=== PATIENT | female | born 1935 | race Caucasian/White ===

== ENCOUNTER 2019-07-18 14:20 | Inpatient (IN) ==
[2019-07-18] MEDS ORDERED: 0.9 % Sodium Chloride 1,000 ML ONE (15:37)
[2019-07-18] MEDS ORDERED: Ondansetron ODT 4 MG TAB.RAPDIS ONE (17:08)
[2019-07-18] MEDS ORDERED: Aspirin 81 MG TAB.CHEW ONE (17:09)
[2019-07-18] MEDS ORDERED: Ondansetron 4 MG/2 ML VIAL IVP PRN (18:14)
[2019-07-18] MEDS ORDERED: Naloxone 0.4 MG/ML INJ IVP PRN (18:14)
[2019-07-18] MEDS ORDERED: Ipratropium/Albuterol Neb 3 ML IH PRN (18:44)
[2019-07-18] MEDS: Apixaban 2.5 MG TABLET PO SCH (20:21)
[2019-07-19 01:00] LABS: Calcium 9.7 mg/dL (8.6-10.3); Magnesium 2.4 mg/dL (1.6-2.6); Potassium 3.7 mEq/L (3.5-5.1)
[2019-07-19 01:01] LABS: Troponin I 0.08 ng/mL (< 0.04)
[2019-07-19 01:25] LABS: Activated Partial Thrombo Time 37.8 Seconds (26.0-36.0); INR 1.9; Prothrombin Time 21.2 Seconds (9.4-12.1)
[2019-07-19 05:55] LABS: Bilirubin,Urine Negative (Negative); Blood,Urine Small (Negative); Clarity,Urine Clear (Clear); Color,Urine Yellow (Yellow); Glucose,Urine (UA) Normal (Normal); Ketones,Urine Negative (Negative); Leukocyte Esterase,Urine Negative (Negative); Nitrite,Urine Negative (Negative); Protein,Urine 30 mg/dL (Neg-Trace); Specific Gravity,Urine 1.016 (1.010-1.025); Urobilinogen,Urine Normal (Normal)
[2019-07-19 05:58] LABS: Basophils % 0.3 %; Immature Granulocytes % 0.3 % (0-4); Mean Corpuscular Hemoglobin 28.9 pg (28.0-33.3); Mean Corpuscular Volume 98.8 fL (83.0-100.0)
[2019-07-19 06:00] LABS: Hematocrit 32.8 % (35.3-44.9); Hemoglobin 9.6 g/dL (11.5-15.4); Immature Platelets 8.9 % (1.1-6.1); Lymphocytes # 0.4 K/mcL (0.6-4.6); Lymphocytes % 13.6 %; Mean Corpuscular HGB Conc 29.3 g/dL (31.6-35.5); Mean Platelet Volume 13.6 fL (9.4-12.4); Monocytes # 0.3 K/mcL (0.0-1.3); Monocytes % 11.3 %; Red Blood Count 3.32 M/mcL (3.82-4.97); Red Cell Distribution Width 14.8 % (11.5-14.5); Segmented Neutrophils % 74.5 %
[2019-07-19 06:03] LABS: Neutrophils # 2.2 K/mcL (1.6-8.9); Platelet Count 67 K/mcL (140-400)
[2019-07-19 06:05] LABS: Platelet Estimate Slight Decrease (Normal)
[2019-07-19 07:43] LABS: Immature Granulocytes % 0.3 % (0-4)
[2019-07-19 07:45] LABS: Hemoglobin 9.1 g/dL (11.5-15.4); Immature Platelets 7.8 % (1.1-6.1); Lymphocytes # 1.1 K/mcL (0.6-4.6); Lymphocytes % 35.5 %; Mean Corpuscular HGB Conc 29.4 g/dL (31.6-35.5); Mean Corpuscular Hemoglobin 29.6 pg (28.0-33.3); Mean Platelet Volume 12.9 fL (9.4-12.4); Monocytes # 0.3 K/mcL (0.0-1.3); Monocytes % 10.2 %; Neutrophils # 1.7 K/mcL (1.6-8.9); Red Blood Count 3.07 M/mcL (3.82-4.97); Red Cell Distribution Width 14.8 % (11.5-14.5); White Blood Count 3.1 K/mcL (4.3-11.1)
[2019-07-19 07:54] LABS: Platelet Count 57 K/mcL (140-400)
[2019-07-19 07:57] LABS: Calcium 9.1 mg/dL (8.6-10.3); Magnesium 2.3 mg/dL (1.6-2.6); Potassium 3.6 mEq/L (3.5-5.1)
[2019-07-19] MEDS: Metoprolol XL (24 HR) Succ 25 MG TAB.ER.24H PO SCH (08:08)
[2019-07-19] MEDS: Apixaban 2.5 MG TABLET PO SCH (08:08)
[2019-07-19] MEDS: Aspirin 81 MG TAB.CHEW PO SCH (08:08)
[2019-07-19] MEDS: predniSONE 20 MG TABLET PO SCH (08:09)
[2019-07-19] MEDS ORDERED: *HR* Heparin 5,000 UNIT/ML VIAL IVP PRN ×4 (11:17→11:51)
[2019-07-19] MEDS ORDERED: *HR* Heparin 5,000 UNIT/ML VIAL IVP ONE ×2 (11:17→11:51)
[2019-07-19] MEDS ORDERED: Morphine Sulfate 2 MG/ML SYRINGE IVP PRN (11:18)
[2019-07-19] MEDS ORDERED: Nitroglycerin 0.4 MG TAB.SUBL SL PRN (11:18)
[2019-07-19] MEDS ORDERED: Heparin 25,000 UNIT/250 ML D5W 25,000 UNIT/250 ML IV.SOLN IVC SCH ×2 (11:30→12:00)
[2019-07-19 11:47] LABS: Prothrombin Time 22.4 Seconds (9.4-12.1)
[2019-07-19 11:58] LABS: Heparin anti-factor XA UFH > 2.00 IU/mL (0.30-0.70)
[2019-07-19] MEDS: Famotidine 20 MG TABLET PO SCH (21:32)
[2019-07-20 02:55] LABS: Immature Granulocytes % 0.6 % (0-4); Red Cell Distribution Width 14.5 % (11.5-14.5)
[2019-07-20 02:57] LABS: Hematocrit 27.9 % (35.3-44.9); Hemoglobin 8.4 g/dL (11.5-15.4); Immature Platelets 7.4 % (1.1-6.1); Lymphocytes # 0.5 K/mcL (0.6-4.6); Lymphocytes % 27.6 %; Mean Corpuscular HGB Conc 30.1 g/dL (31.6-35.5); Mean Corpuscular Hemoglobin 29.2 pg (28.0-33.3); Mean Corpuscular Volume 96.9 fL (83.0-100.0); Mean Platelet Volume 12.8 fL (9.4-12.4); Monocytes # 0.2 K/mcL (0.0-1.3); Monocytes % 13.5 %; Red Blood Count 2.88 M/mcL (3.82-4.97); Segmented Neutrophils % 58.3 %; White Blood Count 1.7 K/mcL (4.3-11.1)
[2019-07-20 03:08] LABS: Platelet Count 60 K/mcL (140-400)
[2019-07-20 03:14] LABS: Calcium 8.8 mg/dL (8.6-10.3); Magnesium 2.5 mg/dL (1.6-2.6); Potassium 3.8 mEq/L (3.5-5.1)
[2019-07-20 04:04] LABS: Anisocytosis 1+ (Not Present); Microcytosis Present (Not Present); Ovalocytes 1+ (Not Present)
[2019-07-20 04:05] LABS: Platelet Estimate Slight Decrease (Normal)
[2019-07-20] MEDS ORDERED: Perflutren Lipid Microsphere 1.3 ML in 0.9 % Sodium Chloride 8.7 ML IVP ONE (08:46)
[2019-07-20] MEDS: predniSONE 20 MG TABLET PO SCH (10:17)
[2019-07-20] MEDS: Aspirin 81 MG TAB.CHEW PO SCH (10:17)
[2019-07-20] MEDS: Metoprolol XL (24 HR) Succ 25 MG TAB.ER.24H PO SCH (10:17)
[2019-07-20] MEDS: calcitrioL 0.25 MCG CAPSULE PO SCH (10:17)
[2019-07-20] MEDS: Furosemide 20 MG TABLET PO SCH (10:17)
[2019-07-20] MEDS: Famotidine 20 MG TABLET PO SCH (21:07)
[2019-07-20] MEDS: Apixaban 5 MG TABLET PO SCH (21:11)
[2019-07-21 06:18] LABS: Hemoglobin 8.5 g/dL (11.5-15.4); Immature Granulocytes % 0.4 % (0-4); Lymphocytes # 0.7 K/mcL (0.6-4.6); Mean Corpuscular HGB Conc 30.4 g/dL (31.6-35.5); Red Cell Distribution Width 14.4 % (11.5-14.5); White Blood Count 2.5 K/mcL (4.3-11.1)
[2019-07-21 06:20] LABS: Immature Platelets 8.6 % (1.1-6.1); Mean Corpuscular Volume 95.6 fL (83.0-100.0); Mean Platelet Volume 13.5 fL (9.4-12.4); Monocytes # 0.2 K/mcL (0.0-1.3); Monocytes % 6.8 %; Neutrophils # 1.7 K/mcL (1.6-8.9); Red Blood Count 2.93 M/mcL (3.82-4.97); Segmented Neutrophils % 66.8 %
[2019-07-21 06:28] LABS: Platelet Count 60 K/mcL (140-400)
[2019-07-21 06:40] LABS: Calcium 9.2 mg/dL (8.6-10.3); Magnesium 2.2 mg/dL (1.6-2.6); Phosphorous 2.5 mg/dL (2.7-4.5); Potassium 3.8 mEq/L (3.5-5.1)
[2019-07-21] MEDS: Furosemide 20 MG TABLET PO SCH (09:09)
[2019-07-21] MEDS: Aspirin 81 MG TAB.CHEW PO SCH (09:09)
[2019-07-21] MEDS: Apixaban 5 MG TABLET PO SCH ×2 (09:09→20:49)
[2019-07-21] MEDS: Metoprolol XL (24 HR) Succ 25 MG TAB.ER.24H PO SCH (09:09)
[2019-07-21] MEDS: calcitrioL 0.25 MCG CAPSULE PO SCH ×2 (09:09→09:15)
[2019-07-21] MEDS: predniSONE 20 MG TABLET PO SCH (09:10)
[2019-07-21] MEDS: Famotidine 20 MG TABLET PO SCH (20:49)
[2019-07-22 05:41] LABS: Immature Granulocytes % 0.6 % (0-4); Red Cell Distribution Width 14.4 % (11.5-14.5)
[2019-07-22 05:43] LABS: Hematocrit 30.3 % (35.3-44.9); Hemoglobin 9.2 g/dL (11.5-15.4); Immature Platelets 9.7 % (1.1-6.1); Lymphocytes # 0.8 K/mcL (0.6-4.6); Lymphocytes % 22.9 %; Mean Corpuscular HGB Conc 30.4 g/dL (31.6-35.5); Mean Corpuscular Hemoglobin 29.1 pg (28.0-33.3); Mean Corpuscular Volume 95.9 fL (83.0-100.0); Monocytes # 0.4 K/mcL (0.0-1.3); Monocytes % 10.9 %; Neutrophils # 2.3 K/mcL (1.6-8.9); Red Blood Count 3.16 M/mcL (3.82-4.97); Segmented Neutrophils % 65.6 %; White Blood Count 3.5 K/mcL (4.3-11.1)
[2019-07-22 05:48] LABS: Platelet Count 60 K/mcL (140-400)
[2019-07-22 05:59] LABS: Calcium 9.4 mg/dL (8.6-10.3); Magnesium 2.1 mg/dL (1.6-2.6); Potassium 3.8 mEq/L (3.5-5.1)
[2019-07-22] MEDS: Furosemide 20 MG TABLET PO SCH (08:29)
[2019-07-22] MEDS: Metoprolol XL (24 HR) Succ 25 MG TAB.ER.24H PO SCH (08:29)
[2019-07-22] MEDS: calcitrioL 0.25 MCG CAPSULE PO SCH (08:29)
[2019-07-22] MEDS: predniSONE 20 MG TABLET PO SCH (08:29)
[2019-07-22] MEDS: Aspirin 81 MG TAB.CHEW PO SCH (08:29)
[2019-07-22] MEDS: Apixaban 5 MG TABLET PO SCH (08:30)
[2019-07-22 14:34] VITALS: BP 132/71
== END 2019-07-22 16:43 | disposition home or self-care (01) | DRG 193 ==
LOC: EMEROOARM 14:20 → 3BNU 14:20 → SUATTDRO 18:19 → 3BNU 19:46 → SUATTDRO 07-19 16:45
PROVIDERS: ADMIT Pharmacist; ATTEND Internal Medicine

== ENCOUNTER 2020-11-16 23:44 | Observation (INO) ==
[2020-11-17 00:55] LABS: Bilirubin,Urine Negative (Negative); Blood,Urine Trace (Negative); Clarity,Urine Clear (Clear); Color,Urine Colorless (Yellow); Glucose,Urine (UA) Normal (Normal); Hyaline Casts,Urine Few per lpf (None Seen); Ketones,Urine Negative (Negative); Leukocyte Esterase,Urine Moderate (Negative); Mucus,Urine Few per lpf (None-Few); Nitrite,Urine Negative (Negative); Protein,Urine Negative (Neg-Trace); RBC,Urine 0-3 per hpf (0-3); Squamous Epithelial Cell,Urine Few per hpf (None-Few); Urobilinogen,Urine Normal (Normal)
[2020-11-17 01:05] LABS: Eosinophils % 3.4 %; Hemoglobin 10.3 g/dL (11.5-15.4); Immature Granulocytes % 0.2 % (0-4)
[2020-11-17 01:07] LABS: Basophils % 0.4 %; Eosinophils # 0.2 K/mcL (0.0-0.6); Hematocrit 33.6 % (35.3-44.9); Immature Platelets 5.1 % (1.1-6.1); Lymphocytes # 1.2 K/mcL (0.6-4.6); Lymphocytes % 24.8 %; Mean Corpuscular HGB Conc 30.7 g/dL (31.6-35.5); Mean Corpuscular Hemoglobin 31.7 pg (28.0-33.3); Mean Corpuscular Volume 103.4 fL (83.0-100.0); Mean Platelet Volume 10.9 fL (9.4-12.4); Monocytes # 0.4 K/mcL (0.0-1.3); Monocytes % 7.8 %; Neutrophils # 3.2 K/mcL (1.6-8.9); Red Blood Count 3.25 M/mcL (3.82-4.97); Red Cell Distribution Width 14.7 % (11.5-14.5); Segmented Neutrophils % 63.4 %
[2020-11-17 01:11] LABS: Platelet Count 92 K/mcL (140-400)
[2020-11-17 01:26] LABS: BUN/Creatinine Ratio 20 (6-26); Blood Urea Nitrogen 49 mg/dL (8-23); Calcium 9.6 mg/dL (8.6-10.3); Carbon Dioxide 19 mEq/L (23-29); Chloride 113 mEq/L (98-107); Glucose 108 mg/dL (70-105); Osmolality,Calculated 308 (280-300); Potassium 4.5 mEq/L (3.5-5.1); Sodium 142 mEq/L (136-145); eGFR For African Americans 22 (> 60); eGFR For Non-African Americans 18 (> 60)
[2020-11-17 01:27] LABS: Troponin I < 0.03 ng/mL (< 0.04)
[2020-11-17] MEDS ORDERED: 0.9 % Sodium Chloride 500 ML IVC ONE (02:40)
[2020-11-17] MEDS ORDERED: cefTRIAXone 1,000 MG in 0.9 % Sodium Chloride Mini Bag 100 ML IVPB ONE (02:40)
[2020-11-17] MEDS ORDERED: Ondansetron ODT 4 MG TAB.RAPDIS SL PRN (05:07)
[2020-11-17] MEDS ORDERED: Naloxone 0.4 MG/ML INJ IVP PRN (05:07)
[2020-11-17] MEDS ORDERED: Ipratropium/Albuterol Neb 3 ML IH PRN (05:09)
[2020-11-17] MEDS: 0.9 % Sodium Chloride 1,000 ML IVC SCH ×2 (08:42→17:27)
[2020-11-17] MEDS ORDERED: cefTRIAXone 1,000 MG in 0.9 % Sodium Chloride Mini Bag 100 ML IVPB SCH (18:00)
[2020-11-18 08:29] LABS: Immature Granulocytes % 0.2 % (0-4)
[2020-11-18 08:31] LABS: Basophils % 0.4 %; Eosinophils # 0.1 K/mcL (0.0-0.6); Eosinophils % 2.1 %; Hematocrit 29.1 % (35.3-44.9); Hemoglobin 8.6 g/dL (11.5-15.4); Immature Platelets 6.3 % (1.1-6.1); Lymphocytes # 0.9 K/mcL (0.6-4.6); Lymphocytes % 19.5 %; Mean Corpuscular HGB Conc 29.6 g/dL (31.6-35.5); Mean Corpuscular Hemoglobin 30.9 pg (28.0-33.3); Mean Corpuscular Volume 104.7 fL (83.0-100.0); Mean Platelet Volume 12.7 fL (9.4-12.4); Monocytes # 0.4 K/mcL (0.0-1.3); Monocytes % 8.5 %; Neutrophils # 3.3 K/mcL (1.6-8.9); Red Blood Count 2.78 M/mcL (3.82-4.97); Red Cell Distribution Width 14.5 % (11.5-14.5); Segmented Neutrophils % 69.3 %; White Blood Count 4.8 K/mcL (4.3-11.1)
[2020-11-18 08:32] LABS: INR 1.4; Prothrombin Time 15.7 Seconds (9.4-12.1)
[2020-11-18 08:43] LABS: Calcium 8.8 mg/dL (8.6-10.3); Magnesium 2.1 mg/dL (1.6-2.6); Potassium 4.2 mEq/L (3.5-5.1)
[2020-11-18 09:03] LABS: Platelet Count 71 K/mcL (140-400)
[2020-11-18 10:12] LABS: Hematocrit 31.3 % (35.3-44.9); Hemoglobin 9.5 g/dL (11.5-15.4)
[2020-11-18 11:38] VITALS: BP 167/62; PULSE 107; TEMP 98.7; O2SAT 94
== END 2020-11-18 12:15 | disposition home or self-care (01) ==
LOC: 2ANU 23:44 → EMEROOARM 23:44 → SUATTDRO 11-17 05:17 → 2ANU 11-17 06:03
PROVIDERS: ADMIT Student in an Organized Health Care Education/Training Program; ATTEND Family Medicine